=== PATIENT | female | born 1975 | race Caucasian/White ===

== ENCOUNTER → 2024-12-23 06:20 | Outpatient (REF) | payer OTHER, SELFPAY | LOC: RAD 06:20 | PROVIDERS: ATTENDING PHYSICIAN Nurse Practitioner Adult Health | DX: B18.2 Chronic viral hepatitis C (principal); K77 Liver disorders in diseases classified elsewhere | CPT/HCPCS: 76700 ==

== ENCOUNTER 2024-12-28 15:22 | Emergency (ER) | payer OTHER, SELFPAY ==
[2024-12-28] VITALS (31 sets, daily range): BP systolic 92–121; BP diastolic 53–80
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
[2024-12-28 15:51] LABS: Hematocrit 36.2 % (37.0-47.0); Hemoglobin 11.8 g/dL (12.0-16.0); Mean Corp Hgb Conc. 32.6 g/dL (33.0-37.0); Mean Corpuscular Volume 80.6 fL (81.0-99.0); Nucleated Red Blood Cells % 0 %; Platelet Count 243 10^3/uL (130-400); Red Cell Dist. Width 15.4 % (11.5-14.5)
[2024-12-28] MEDS: NSS 1000 IV (15:52)
[2024-12-28 16:14] LABS: Acetaminophen < 10 ug/ml (10-30); Blood Urea Nitrogen 28 mg/dl (7-17); Calcium 9.3 mg/dl (8.4-10.2); Carbon Dioxide 28 mmol/L (22-30); Chloride 103 mmol/L (98-107); Glucose 115 mg/dl (70-99); Sodium 137 mmol/L (135-145); eGFR > 60.00
--- NOTE | 2024-12-28 19:03 | EDRN ---
Pt awake enough to have conversations, pt requesting to speak with her mother. Pt states she will speak to ARLETTE, contacted by [employer].
--- NOTE | 2024-12-28 19:13 | PHANOTE ---
med rec note-patient claims she takes Adderall, no pdmp or no records at [facility] [place] pharmacy for Adderall. will try to reach out to mom and see if patient has any medication bottles at home, and what pharmacy she goes to. patient goes a to a
methadone clinic. unable to get information at this time.
--- NOTE | 2024-12-28 20:04 | EDRN ---
Pt talked to [facility]. Per [facility] staff, there must be documentation by the methadone clinic stating pt can return to treatment in order for her to be placed inpt. Pt admits to 8 bags of fentanyl a day and sometimes she switches to 8 bags of cocaine
a day. Pt states 'I last used 4 days ago, but I used crack today'. Pt aware of plan to stay here till AM to talk with additional [facility] staff. Pt states she takes clonidine, mavyret and adderall daily as prescriptions but has not had them filled at
[facility] yet since she does not have a [facility] doctor since moving to [place].
--- NOTE | 2024-12-28 20:10 | ED TECH ---
Facesheet faxed over to [facility] per the request of Anahy ([facility]).
[2024-12-29] VITALS (11 sets, daily range): BP systolic 122–155; BP diastolic 73–99
[2024-12-29] MEDS: KLONOPIN 1 MG PO (11:26)
--- NOTE | 2024-12-29 11:27 | EDRN ---
RN assumed patient care. patient given home dose of Mayvret that belongs to the patient per MD Diogenes Pinedo verbal order. patient took 3 pills total 100mg/40mg. remaining meds ordered were given and awaiting adderall requested from pharmacy. patient
had vape in bed with her. RN stepped out of room to get medications and patient got out of bed, took the pen from the sink and blamed the nurse for taking it away. RN searched for pen and found it again in the bed with the patient. security at
bedside to remove vape pen. patient aware security has posession of it and can pick it up upon discharge. patient offered nicotime patch and patient declined at this time. awaiting confirmation on methadone dosing. patient on the phone with annabelle
intake.
[2024-12-29] MEDS: ADDERALL 10 MG PO (11:45)
[2024-12-29] MEDS: METHADONE 100 MG/10 ML 110 MG PO (12:28)
== END 2024-12-29 13:21 ==
LOC: EMR 15:22
PROVIDERS: EMERGENCY PHYSICIAN Emergency Medicine; FAMILY PHYSICIAN Family Medicine
DX: F11.20 Opioid dependence, uncomplicated (principal)
CPT/HCPCS: 99285; 96360; 80048; 80143; 80306; 80307; 82077; 85025

== ENCOUNTER → 2025-04-15 11:56 | Outpatient (REF) | payer OTHER, SELFPAY | LOC: PAVMRI 11:56 | PROVIDERS: ATTENDING PHYSICIAN Nurse Practitioner Adult Health | DX: R93.2 Abnormal findings on diagnostic imaging of liver and biliary tract (principal) | CPT/HCPCS: 74183; A9575 ==